=== PATIENT | male | born 1950 | race African-American/Black ===

== ENCOUNTER 2016-11-20 11:38 | Emergency (ER) | payer OTHER ==
[~2016-11-20] VITALS: Ht 167.6 cm; Wt 54.0 kg
[~2016-11-20 11:38] MED LIST: ASPIR-LOW81 MG PO; Aspirin E.C. PO; CHLORDIAZEPOXI1 EACH PO; CLEOCIN300 MG PO; DICLOFENAC SODI75 MG PO; DOCUSATE SODIU100 MG PO; FOLIC ACID1 MG PO; GABAPENTIN600 MG PO; KEFLEX500 MG PO; LIBRIUM25 MG PO; LISINOPRIL20 MG PO; METHADONE10 MG/1 M1 PO; METOPROLOL SUC100 MG PO; MOTRIN600 MG PO; MYCOSTATIN 100,60 ML PO; NICOTINE PATCH1 EAC2 TD; OXYCODONE HCL5 MG PO; OXYCODONE-APAP1 EACH PO; PANTOPRAZOLE SO40 MG PO; PERCOCET 5/31 TABLET PO; POLYETHYLENE GL17 GM PO; ULTRAM50 MG PO; VITAMIN B-1100 MG PO; ZOFRAN ODT8 MG PO
[2016-11-20] MEDS ORDERED: ENDOCET 5-3251 EACH PO (12:50)
[2016-11-20] MEDS ORDERED: FLEXERIL10 MG PO (14:11)
[2016-11-20] MEDS ORDERED: NAPROSYN500 MG PO (14:11)
[2016-11-20 14:28] VITALS: BP 144/82
== END 2016-11-20 14:28 | disposition home or self-care (01) ==
LOC: RME 11:38 → EME 11:38 → RME 14:28
DX: M54.5 Low back pain (principal); S80.02XA Contusion of left knee, initial encounter; V49.50XA Passenger injured in collision with unspecified motor vehicles in traffic accident, initial encounter; G89.29 Other chronic pain; Z79.891 Long term (current) use of opiate analgesic; F17.200 Nicotine dependence, unspecified, uncomplicated
CPT/HCPCS: 72070; 73564; 99281; 99284

== ENCOUNTER 2017-01-31 17:00 | Emergency (ER) | payer OTHER ==
[~2017-01-31] VITALS: Ht 167.6 cm; Wt 55.2 kg
[~2017-01-31 17:00] MED LIST changes: +ENDOCET 5-3251 EACH PO; +FLEXERIL10 MG PO; +NAPROSYN500 MG PO
[2017-01-31 17:09] VITALS: BP 144/83
[2017-01-31] MEDS ORDERED: AUGMENTIN875 MG PO (20:39)
== END 2017-01-31 20:52 | disposition home or self-care (01) ==
LOC: EME 17:00
DX: L03.211 Cellulitis of face (principal); F17.200 Nicotine dependence, unspecified, uncomplicated; F10.10 Alcohol abuse, uncomplicated
CPT/HCPCS: 70486; 80048; 85027; 99281; 99284

== ENCOUNTER 2017-04-12 07:50 | Emergency (ER) | payer OTHER ==
[~2017-04-12] VITALS: Ht 167.6 cm; Wt 51.6 kg
[~2017-04-12 07:50] MED LIST changes: +AUGMENTIN875 MG PO
[2017-04-12 09:07] VITALS: BP 146/87
[2017-04-12] MEDS ORDERED: FLEXERIL10 MG PO (10:40)
== END 2017-04-12 10:56 | disposition home or self-care (01) ==
LOC: EME 07:50
DX: M54.2 Cervicalgia (principal); Z79.891 Long term (current) use of opiate analgesic; M25.511 Pain in right shoulder; M25.512 Pain in left shoulder; M25.561 Pain in right knee; G89.29 Other chronic pain; F17.200 Nicotine dependence, unspecified, uncomplicated
CPT/HCPCS: 72125; 73030; 99281; 99284; J3010

== ENCOUNTER 2017-04-25 17:08 | Emergency (ER) | payer OTHER ==
[~2017-04-25] VITALS: Ht 175.3 cm; Wt 54.5 kg
[2017-04-25 20:17] VITALS: BP 123/95
== END 2017-04-25 20:17 | disposition home or self-care (01) ==
LOC: EME 17:08
DX: S00.81XA Abrasion of other part of head, initial encounter (principal); M54.9 Dorsalgia, unspecified; M54.2 Cervicalgia; W10.9XXA Fall (on) (from) unspecified stairs and steps, initial encounter; K21.9 Gastro-esophageal reflux disease without esophagitis; F17.200 Nicotine dependence, unspecified, uncomplicated
CPT/HCPCS: 70450; 71020; 72125; 72128; 72131; 93005; 99281; 99285; J2270